=== PATIENT | female | born 1985 | race Caucasian/White ===

== ENCOUNTER 2017-07-31 00:11 | Emergency (ER) | payer BC, OTHER ==
[~2017-07-31] VITALS: Ht 177.8 cm; Wt 128.0 kg
[~2017-07-31 00:11] MED LIST: CITA40TA12 PO; DOXY100C76 PO
[2017-07-31 00:18] VITALS: TEMP 36.3; Ht 177.8 cm; Wt 128.0 kg
[2017-07-31] MEDS ORDERED: PROP20TA67 PO (00:49)
[2017-07-31] MEDS ORDERED: NITR-5 PO (01:24)
--- NOTE | 2017-07-31 01:24 | EMERGENCY ROOM VISIT NOTE ---
History First contact with patient: 00:21 Chief Complaint: URINARY SYMPTOMS Stated Complaint: UTI SYMPTOMS Nursing Triage Summary: pt c/o urinary symptoms since friday. states "i get UTIs about once a year." c/ o burning/frequency of urine. History of Present Illness The patient is a 31 year old female who presents to the Emergency Room with complaints of UTI symptoms. The patient reports that she has had dysuria and increased frequency of urination for the past 5 days. She was seen by her primary care provider and had a urinalysis which apparently showed red blood cells, white blood cells and bacteria in the urine. The patient states that she was told by her primary care provider that she "was fine." She states that her symptoms have been worsening since then. She denies any abdominal or back pain. She denies vaginal discharge. She denies fevers. She does report a history of UTIs and states that she usually does very well with Macrobid. Review of Systems A complete 10 point review of systems was reviewed with the patient with pertinent positives and negatives as per history of present illness. All else were negative. Past Medical/Surgical History Medical Problems: (1) Exam Pre-Operative Nos (2) Exam Pre-Operative Nos Social History Smoking Status: Never Smoker Drug Use: none Marital Status: Housing Status: lives with significant other Occupation Status: employed Current/Historical Medications Scheduled Nitrofurantoin Monohyd Macrocr (Macrobid), 100 MG PO BID Propranolol (Inderal), 40 MG PO DAILY Physical Exam Vital Signs Date Time Temp Pulse Resp B/P (MAP) Pulse Ox O2 Delivery O2 Flow Rate FiO2 07/31/17 01:38 76 18 132/99 100 07/31/17 00:18 36.3 77 18 172/100 100 Room Air Physical Exam VITALS: Vitals are noted on the nurse's note and reviewed by myself. Vital signs stable. GENERAL: This is a 31-year-old female, in no acute distress, nondiaphoretic, well-developed well-nourished. HEART: Regular rate and rhythm without murmurs gallops or rubs. LUNGS: Clear to auscultation bilaterally without wheezes, rales or rhonchi. ABDOMEN: Positive bowel sounds x 4. Soft, nontender to palpation. No CVA tenderness. NEURO: Patient was alert and oriented to person place and time. Medical Decision & Procedures Laboratory Results Test 07/31/17 00:29 Urine Test NEG (NEG) Medications Administered Medications (Trade) Dose Ordered Sig/Jose Route Start Time Stop Time Status Last Admin Dose Admin Nitrofurantoin (Macrobid Homepack 100MG) 1 homepack UD ONCE PO 07/31/17 01:30 07/31/17 01:31 DC 07/31/17 01:36 1 HOMEPACK Medical Decision Differential diagnosis includes UTI, vaginal infection, interstitial cystitis, among others. The patient is a 31-year-old female who presents today complaining of urinary symptoms. Urine dip was obtained and was essentially negative. Culture was sent. Patient has had multiple UTIs in the past and feels this is similar to previous. For this reason, she will be placed on Macrobid pending the culture results. Conservative measures were discussed with the patient. She verbalized understanding of my assessment and treatment plan and was discharged home in good condition. Medication Reconcilliation Current Medication List: was personally reviewed by me Blood Pressure Screening Patient's blood pressure: Normal blood pressure Impression Primary Impression: Symptoms of urinary tract infection Departure Information Dispostion Home / Self-Care Condition GOOD Prescriptions Nitrofurantoin Monohyd Macrocr (Macrobid) 100 Mg Cap 100 MG PO BID for 7 Days, #14 CAP Prov: Ewa Gibson ., JOANNA 07/31/17 Referrals No Doctor, Assigned (PCP) Patient Instructions My [facility] Additional Instructions You have been treated in the Emergency Department for a Urinary Tract Infection (UTI). You have been prescribed Macrobid to be taken twice daily as prescribed. This is an antibiotic. All antibiotics have the potential to cause diarrhea. Stop this medication and contact a medical provider if you were to develop any significant adverse side effects including: wheezing, shortness of breath, passing out, vomiting, or a diffuse rash. Always take antibiotics as directed and COMPLETE the ENTIRE course regardless of the improvement of your symptoms. Drink plenty of water and stay well hydrated. As with any trip to the Emergency Department, you should follow-up with your Primary Care Provider from today's visit. Return to the emergency department if your symptoms persist despite treatment plan outlined above or if the following symptoms occur: increased fevers, chills , low back pain, nausea/vomiting, or blood in your urine.
[2017-07-31] MEDS ORDERED: MACROBID 100MG HOME PACK 1 EA VIAL PO ONE (01:30)
[2017-07-31 01:38] VITALS: BP 132/99; PULSE 76; O2SAT 100
[2017-07-31] MEDS ORDERED: NITROFURANTOIN MONOHYDRATE 100 MG CAP PO ONE (09:00)
== END 2017-07-31 01:38 | disposition home or self-care (01) ==
LOC: C.EDB 00:12 → C.EDA 01:38
DX: N39.0 Urinary tract infection, site not specified (principal); Z87.440 Personal history of urinary (tract) infections

== ENCOUNTER 2017-10-05 02:02 | Emergency (ER) | payer BC ==
[~2017-10-05] VITALS: Ht 177.8 cm; Wt 127.8 kg
[~2017-10-05 02:02] MED LIST changes: -CITA40TA12 PO; -DOXY100C76 PO; +PROP20TA67 PO
[2017-10-05 02:06] VITALS: TEMP 36.8; Ht 177.8 cm; Wt 127.8 kg
[2017-10-05] MEDS ORDERED: ONDANSETRON INJ 2 MG/ML 2 ML VIAL IV STA (02:23)
[2017-10-05] MEDS ORDERED: SODIUM CHLORIDE 0.9% 1000ML 1,000 ML IV STA (02:23)
[2017-10-05 02:58] LABS: BASO % 0.5 %; BASO ABS # 0.05 K/uL (0-0.2); EOS % 2.2 %; EOS ABS # 0.23 K/uL (0-0.5); HEMATOCRIT 36.6 % (37-47); HEMOGLOBIN 12.2 g/dL (12.0-16.0); IG# 0.02 K/uL (0.00-0.02); LYMPH % 27.1 %; MEAN CELL VOLUME 82.2 fL (80-100); MEAN CORPUSCULAR HEMOGLOBIN 27.4 pg (25-34); MEAN CORPUSCULAR HGB CONC 33.3 g/dl (32-36); MEAN PLATELET VOLUME 10.5 fL (7.4-10.4); MONO % 6.1 %; MONO ABS # 0.63 K/uL (0.11-0.59); NEUT % 63.9 %; NEUT ABS # 6.61 K/uL (1.4-6.5); PLATELET COUNT 253 K/uL (130-400); RED CELL DISTRIBUTION WIDTH SD 42.2 fL (36.4-46.3); WHITE BLOOD COUNT 10.34 K/uL (4.8-10.8)
[2017-10-05 03:06] LABS: CALCIUM 8.9 mg/dl (8.5-10.1); CREATININE 0.9 mg/dl (0.60-1.20); POTASSIUM 3.2 mmol/L (3.5-5.1)
[2017-10-05] MEDS ORDERED: POTASSIUM CHLORIDE 10 MEQ TABCR PO STA (03:44)
[2017-10-05] MEDS ORDERED: ONDANSETRON HOME PACK 4MG OD TAB PO ONE (03:45)
--- NOTE | 2017-10-05 05:04 | EMERGENCY ROOM VISIT NOTE ---
History First contact with patient: 02:12 Chief Complaint: SINUS CONGESTION/PRESSURE Stated Complaint: SINUS,VOMITING Nursing Triage Summary: patient states intermittent for past three weeks she has had nausea/vomiting and for the past three days has had increased sinus congestion. tonight patient was bowling and had one episode of emesis. patient was recently seen at urgent care and started on a zpak for sinus infeciton. History of Present Illness The patient is a 32 year old female who presents to the Emergency Room with complaints of intermittent nausea and vomiting for the past 3 weeks. Patient is currently on her menstrual cycle. Patient had some sinus congestion for the past few days. She is placed on Z-Lester yesterday by urgent care. Patient remains a mild headache. Patient denies chest pain, dyspnea, fever, chills, productive cough, abdominal pain, diarrhea, urinary symptoms, morning headache, morning vomiting, chance of . No drug use. No localized weakness. Review of Systems An 10 system review of systems was completed with positives and pertinent negatives listed in the HPI. Past Medical/Surgical History Medical Problems: (1) Exam Pre-Operative Nos (2) Exam Pre-Operative Nos Social History Smoking Status: Never Smoker Smokeless Tobacco Use: No Drug Use: none Marital Status: Housing Status: lives with significant other Occupation Status: employed Current/Historical Medications Scheduled Propranolol (Inderal), 40 MG PO DAILY Physical Exam Vital Signs Date Time Temp Pulse Resp B/P (MAP) Pulse Ox O2 Delivery O2 Flow Rate FiO2 10/05/17 04:03 87 20 147/94 100 Room Air 10/05/17 02:31 98 10/05/17 02:06 36.8 110 20 161/101 99 Room Air Physical Exam VITALS: Vitals are noted on the nurse's note and reviewed by myself. Vital signs hypertensive GENERAL: Pleasant female, in no acute distress, nondiaphoretic, well-developed well-nourished. SKIN: The skin was without rashes, erythema, edema, or bruising. There is no tenting of the skin. Capillary reflex less than 2 seconds. HEAD: Normocephalic atraumatic. EARS: External auditory canals clear, tympanic membranes pearly morris without erythema or effusion bilaterally. EYES: Pupils equal round and reactive to light and accommodation. Conjunctivae without injection, sclerae without icterus. Extraocular movements intact. NOSE: Patent, turbinates without inflammation or discharge. No sinus tenderness. MOUTH: Mucous membranes moist. Pharynx without erythema or exudate. Uvula midline. Airway patent. Tongue does not deviate. NECK: Supple without nuchal rigidity. No lymphadenopathy. No thyromegaly. Cervical spine is nontender. No JVD. HEART: Regular rate and rhythm without murmurs gallops or rubs. LUNGS: Clear to auscultation bilaterally without wheezes, rales or rhonchi. No retractions or accessory muscle use. ABDOMEN: Positive bowel sounds x 4. Normal tympanic percussion. Soft, protuberant, obese, nontender, without masses or organomegaly. Cervantes sign negative. No guarding or rebound tenderness. No CVA tenderness MUSCULOSKELETAL: No muscle atrophy, erythema, or edema noted. NEURO: Patient was alert and oriented to person place and time. Normal sensation to light and sharp touch. No focal neurological deficits. Medical Decision & Procedures Laboratory Results 10/05/17 02:40 Red Blood Count 4.45, Mean Corpuscular Volume 82.2, Mean Corpuscular Hemoglobin 27.4, Mean Corpuscular Hemoglobin Concent 33.3, Mean Platelet Volume 10.5, Neutrophils (%) (Auto) 63.9, Lymphocytes (%) (Auto) 27.1, Monocytes (%) (Auto) 6.1, Eosinophils (%) (Auto) 2.2, Basophils (%) (Auto) 0.5, Neutrophils # (Auto) 6.61, Lymphocytes # (Auto) 2.80, Monocytes # (Auto) 0.63, Eosinophils # (Auto) 0.23, Basophils # (Auto) 0.05 10/05/17 02:40 Test 10/05/17 02:40 White Blood Count 10.34 K/uL (4.8-10.8) Red Blood Count 4.45 M/uL (4.2-5.4) Hemoglobin 12.2 g/dL (12.0-16.0) Hematocrit 36.6 % (37-47) Mean Corpuscular Volume 82.2 fL (80-100) Mean Corpuscular Hemoglobin 27.4 pg (25-34) Mean Corpuscular Hemoglobin Concent 33.3 g/dl (32-36) Platelet Count 253 K/uL (130-400) Mean Platelet Volume 10.5 fL (7.4-10.4) Neutrophils (%) (Auto) 63.9 % Lymphocytes (%) (Auto) 27.1 % Monocytes (%) (Auto) 6.1 % Eosinophils (%) (Auto) 2.2 % Basophils (%) (Auto) 0.5 % Neutrophils # (Auto) 6.61 K/uL (1.4-6.5) Lymphocytes # (Auto) 2.80 K/uL (1.2-3.4) Monocytes # (Auto) 0.63 K/uL (0.11-0.59) Eosinophils # (Auto) 0.23 K/uL (0-0.5) Basophils # (Auto) 0.05 K/uL (0-0.2) RDW Standard Deviation 42.2 fL (36.4-46.3) RDW Coefficient of Variation 14.0 % (11.5-14.5) Immature Granulocyte % (Auto) 0.2 % Immature Granulocyte # (Auto) 0.02 K/uL (0.00-0.02) Anion Gap 8.0 mmol/L (3-11) Est Creatinine Clear Calc Drug Dose 131.9 ml/min Estimated GFR () 98.7 Estimated GFR (Non- 85.2 BUN/Creatinine Ratio 13.2 (10-20) Calcium Level 8.9 mg/dl (8.5-10.1) Thyroid Stimulating Hormone (TSH) 6.280 uIu/ml (0.300-4.500) Human Chorionic Gonadotropin, Qual NEG (NEG) Medications Administered Medications (Trade) Dose Ordered Sig/Jose Route Start Time Stop Time Status Last Admin Dose Admin Ondansetron HCl (Zofran Inj) 4 mg NOW STAT IV 10/05/17 02:23 10/05/17 02:25 DC 10/05/17 02:47 4 MG Sodium Chloride 1,000 ml @ 999 mls/hr Q1H1M STAT IV 10/05/17 02:23 10/05/17 03:23 DC 10/05/17 02:47 999 MLS/HR Potassium Chloride (Klor-Con M10) 30 meq NOW STAT PO 10/05/17 03:44 10/05/17 03:45 DC 10/05/17 04:00 30 MEQ Ondansetron HCl (ZOFRAN ODT 4MG Home Pack) 1 homepack UD ONCE PO 3/4/18 03:45 10/05/17 03:46 DC 10/05/17 04:01 1 [facility] ED Course Prior records/ancillary studies reviewed. Triage Nursing notes reviewed. Additional history obtained from the family. The patient's history was concerning for nausea, vomiting, and sinus congestion Differential diagnosis: Etiologies such as gastritis, thyroid problem, infection, food borne illness, , appendicitis, diverticulitis, inflammatory bowel disease, obstruction , GI bleed, biliary pathology, as well as others were entertained. Physical examination findings: As above. Abdominal examination revealed no tenderness. Vital signs reviewed and revealed hypertensive. ER treatment provided: IV hydration 1 L NSS. Zofran On reassessment the patient felt better. Patient was tolerating p.o. intake. Diagnostics interpretation by me: The labs revealed minimally elevated TSH. Negative Hypokalemia this is replaced orally Imaging studies: Head and sinus CT negative for infection or intracranial bleed This appears to be consistent with nausea and vomiting. Patient had no signs of sinus infection on clinical exam or on CT imaging. She is advised to stop the antibiotics. Patient was neurovascularly and neurologically intact. She did not have acute abdomen on exam. She is advised to follow-up family care in a few days for further evaluation workup here in the ER sooner for abdominal pain, fevers, vomiting, neck stiffness, worsening signs or symptoms or as needed. By the evaluation outlined above emergent etiologies such as appendicitis, diverticulitis, obstruction, cardiac sources, mesenteric ischemia , aortic pathology, inflammatory bowel disease, renal colic, PUD, biliary pathology, UTI, as well as others were deemed relatively unlikely. The pt informed about the findings as listed above. All questions were answered and pleased with the treatment. Return instructions were outlined and the patient was discharged in stable condition. Outpatient prescription management: Zofran Referral: The patient was referred to their primary care physician for follow-up in 2 to 3 days for a recheck of the current condition. Case reviewed with my attending The chart was completed utilizing [employer] voice recognition software. Grammatical errors, random word insertions, pronoun errors, and incomplete sentences are an occassional consequence of this system due to software limitations, ambient noise, and hardware issues. Any formal questions or concerns about the content, text, or information contained within the body of this dictation should be directly addressed to the physician orthodontist assistant for clarification. Medical Decision As above Medication Reconcilliation Current Medication List: was personally reviewed by me Blood Pressure Screening Patient's blood pressure: Elevated blood pressure Blood pressure disposition: Elevated BP felt to be situational Impression Primary Impression: Vomiting Additional Impression: Hypokalemia Departure Information Dispostion Home / Self-Care Condition GOOD Referrals Shaniqua Corona PA-C (PCP) Patient Instructions My [facility] Additional Instructions Stop the Zithromax. Your TSH is minimally elevated. Recheck this with family care. Zofran(odansetron) tablets 4mg: Take one and allow it to dissolve in your mouth every four to six hours as needed for nausea or vomiting. Rest and drink plenty of fluids as tolerated. Slow sips of water or sports drinks are recommended instead of large amounts all at once. Continue current medications. Once your stomach is settled start with a clear liquid diet (jello, soup broth, etc.) and then advance as tolerated. You should avoid full, heavy meals for about 24 hrs from the time your symptoms resolved. Return to the ER for persistent vomiting, fevers, abdominal pain, chest pains, difficulty breathing, black or bloody stools, worsening of your condition, or as needed. Follow up with your primary physician in 2-3 days for a recheck of your current condition. Problem Qualifiers
[2017-10-05 05:13] VITALS: BP 135/75; PULSE 77; O2SAT 100
--- NOTE | 2017-10-05 07:17 | DIAGNOSTIC IMAGING REPORT ---
CT SCAN OF THE PARANASAL SINUSES CLINICAL HISTORY: Headache. Sinus pain. COMPARISON STUDY: CT of the brain performed concurrently on 10/05/2017. TECHNIQUE: High-resolution CT scan of the paranasal sinuses is performed. Images are reviewed in the axial, sagittal, and coronal planes. IV contrast was not administered for this examination. A dose lowering technique was utilized adhering to the principles of ALARA. FINDINGS: Maxillary antra: Clear bilaterally. Anterior ethmoid sinuses: Clear. Posterior ethmoid sinuses: Clear. Sphenoid sinuses: Clear. Frontal sinuses: Clear. Ostiomeatal complexes: Patent bilaterally. Frontoethmoidal and sphenoethmoidal recesses: Patent bilaterally. Carotid arteries: The carotid arteries are covered and without septal attachments. Ethmoid roofs: The ethmoid roofs are symmetric. Nasal turbinates: Normal in appearance. Nasal septum: There is minimal leftward deviation of the bony nasal septum. Optic nerves: Covered. Orbits: The bony orbits are intact. Orbital contents are normal in appearance. Calvarium: The imaged calvarium is normal in appearance Mastoid air cells: Well pneumatized. Brain parenchyma: Partially visualized brain parenchyma is within normal limits. IMPRESSION: There is no significant paranasal sinus disease. See above. Electronically signed by: Choco Mayfield M.D. 10/05/2017 7:16 AM Dictated Date/Time: 10/05/2017 7:14 AM
--- NOTE | 2017-10-05 08:57 | DIAGNOSTIC IMAGING REPORT ---
CT SCAN OF THE BRAIN WITHOUT IV CONTRAST CLINICAL HISTORY: Headache. COMPARISON STUDY: No priors. TECHNIQUE: Unenhanced axial CT scan of the brain is performed from the vertex to the skull base. A dose lowering technique was utilized adhering to the principles of ALARA. FINDINGS: Brain parenchyma: The brain parenchyma is normal in appearance. There is no hemorrhage, mass effect, or evidence of acute territorial ischemia by CT criteria. Kay-white matter is preserved. No extra-axial fluid collection is seen. Ventricles, sulci, cisterns: Normal in configuration. Intracranial vasculature: The visualized intracranial vasculature at the skull base is normal in appearance. Calvarium: Unremarkable. Sinuses and mastoids: The visualized paranasal sinuses are clear. The mastoid air cells are well pneumatized. Orbits: The bony orbits are grossly intact. IMPRESSION: No acute intracranial abnormality. Electronically signed by: Choco Mayfield M.D. 10/05/2017 8:55 AM Dictated Date/Time: 10/05/2017 8:54 AM
== END 2017-10-05 05:15 | disposition home or self-care (01) ==
LOC: C.EDB 02:03
DX: R11.2 Nausea with vomiting, unspecified (principal); E87.6 Hypokalemia; R09.81 Nasal congestion

== ENCOUNTER 2018-03-04 14:12 | Emergency (ER) | payer BC, OTHER ==
[~2018-03-04] VITALS: Ht 177.8 cm; Wt 122.3 kg
[2018-03-04 14:17] VITALS: Ht 177.8 cm; Wt 122.3 kg
[2018-03-04] MEDS ORDERED: CITA40TA12 PO (14:35)
[2018-03-04 14:49] VITALS: BP 131/87; PULSE 64; TEMP 36.6; O2SAT 99
--- NOTE | 2018-03-04 21:57 | EMERGENCY ROOM VISIT NOTE ---
History First contact with patient: 14:19 Chief Complaint: KNEEPAIN Stated Complaint: KNEE PAIN History of Present Illness The patient is a 32 year old female who presents to the Emergency Room with complaints of right knee pain. The patient reports that she has noticed a sharp stabbing sensation in the front of her knee for the past 1.5 weeks. Patient reports a prior history of arthroscopy and meniscal repair in 2010. She also has a history of same knee ACL repair by Dr. Caceres prior to her last arthroscopy. The patient reports that she was evaluated at [facility] emergency department, and was told that it was probably another meniscal tear. The patient reports that she has not had any clicking or locking of the knee, which she had with her prior meniscal tear. She has not noticed any swelling of the knee. She denies any known injury to the knee. She denies any pain extending into the thigh or calf, and reports worsening pain with ambulation and bending the knee. She rates her discomfort a 7 out of 10. The patient reports that she is currently 12 weeks . Review of Systems 10 system review was performed and was negative except for pertinent positives and negatives as indicated in history of present illness Past Medical/Surgical History Medical Problems: (1) Exam Pre-Operative Nos (2) Exam Pre-Operative Nos Family History Unremarkable Social History Smoking Status: Never Smoker Drug Use: none Marital Status: Occupation Status: employed Current/Historical Medications Scheduled Citalopram Hydrobromide (Celexa), 1 TAB PO DAILY Physical Exam Vital Signs Date Time Temp Pulse Resp B/P (MAP) Pulse Ox O2 Delivery O2 Flow Rate FiO2 03/04/18 14:49 36.6 64 18 131/87 99 03/04/18 14:17 36.6 64 18 131/87 99 Room Air Physical Exam CONSTITUTIONAL: Obese female, alert and oriented X 3 with positive affect. Patient does not appear in any acute distress. HEENT: Normocephalic, atraumatic. Pupils equal, round and reactive. NECK: Full active range of motion without discomfort. RESPIRATORY: Clear to auscultation bilaterally with no wheezing, crackles, rhonchi or stridor. CARDIOVASCULAR: Regular rate and rhythm with no murmurs, rubs or gallops. MUSCULOSKELETAL: Examination of the right knee does not show any obvious soft tissue edema, erythema or increased warmth to palpation. She does have surgical incisions consistent with prior ACL reconstruction and arthroscopy. The patient has mild tenderness to palpation over the anteromedial joint line. She has no tenderness to palpation laterally or peripatellar region. No joint effusion noted. She has full active flexion and extension without crepitance or locking. Negative anterior drawer, negative posterior drawer. Collateral ligaments are intact with varus and valgus stress. No pes anserine swelling or tenderness to palpation. No popliteal masses. Pedal pulses are intact. INTEGUMENTARY: No rash or other significant dermatologic conditions noted. NEUROLOGIC: Right lower extremity is sensory intact. Medical Decision & Procedures ED Course Patient history and physical exam were performed. Nurse's notes were reviewed. Vital signs were reviewed and were normal. The patient does not appear in any acute distress on exam. The patient has focal tenderness to palpation over the anteromedial joint line. Otherwise her exam is normal. The patient reports that she did receive a knee immobilizer from the [facility] emergency department. She reports that the immobilizer because back pain when walking. The patient does not have crutches. She was dispensed a pair crutches as well to use intermittently with her immobilizer. I explained that her symptoms likely would be better controlled with the immobilizer. The patient reports that she has been using her old ACL brace as well. I did explain that because she has not had any recent trauma, x-rays really would not provide additional information, plus with the patient still being at the end of her first trimester, I recommended avoiding unnecessary radiation exposure. The patient was in agreement. I also explained that her history and clinical exam findings are not consistent with deep vein thrombosis, and the patient was in agreement. She was encouraged to intermittently apply ice to the knee. Tylenol as needed for pain. The patient will follow up with [facility] for further reevaluation and management. The patient was happy with plan of care, and voiced understanding of all discharge instructions, rating her discomfort a 5 out of 10 at the time of discharge. She refused any analgesics while in the emergency department. Medical Decision Medication Reconcilliation Current Medication List: was personally reviewed by me Blood Pressure Screening Patient's blood pressure: Normal blood pressure Impression Primary Impression: Right anterior knee pain Departure Information Dispostion Home / Self-Care Condition [employer] HOME CARE DOCUMENTATION FORM, IMPORTANT VISIT INFORMATION Patient Instructions My [facility] Additional Instructions Continue to intermittently apply ice and elevate the knee for swelling and pain. Tylenol 1000 mg every 6-8 hours as needed for additional pain relief. Continue to alternate use of your knee immobilizer, ACL brace and crutches as needed. Suggest follow-up with [facility] for further reevaluation. FOR WORK: Patient was in the emergency department today from 2:15 to 2:45 PM.
== END 2018-03-04 14:50 | disposition home or self-care (01) ==
LOC: C.EDB 14:14 → C.EDD 14:50
DX: M25.561 Pain in right knee (principal); Z98.890 Other specified postprocedural states; Z87.828 Personal history of other (healed) physical injury and trauma; Z79.899 Other long term (current) drug therapy